=== PATIENT | male | born 1930 | race Caucasian/White ===

== ENCOUNTER → 2017-10-03 | Outpatient (CLI) | payer MEDICARE ==
--- NOTE | 2017-10-04 16:10 | Diagnostic Imaging Report ---
EXAMINATION: PET/CT. INDICATION: Right lung nodule, pancreatic mass. EXAMINATION: After intravenous administration of 12.6 mCi of [id number], a series of overlapping emission and transmission PET images was obtained. In the coronal, transaxial and sagittal planes, the area imaged extended from the skull base through the upper thighs. FINDINGS: There are no previous PET/CT examinations available for comparison. The CT chest exam performed at [facility] in [place], [place], on 08/09/2017 noted a 2 cm pulmonary nodule in the right costophrenic angle. The CT exam also identified a cystic pancreatic lesion. This cystic pancreatic lesion had increased in size since the prior CT abdomen/pelvis exam of 07/18/2014. On this exam, neither the 2 cm mass in the right lung base nor the cystic lesion involving the body of the pancreas is hypermetabolic. There are a few small mediastinal and hilar nodes which are slightly hypermetabolic. These have maximum SUV values in the 2.8-3.1 range. These findings are not conclusive for malignancy. There is no other hypermetabolic activity evident to suggest the presence of neoplasm. The CT images do show that the prostate gland is borderline enlarged measuring 5.0 cm in maximum transverse diameter. There is no hypermetabolic focus associated with the prostate gland to suggest malignancy. The CT images do show that there is an aortic stent graft in place. There are also post-traumatic and degenerative changes involving the right hip joint. There is no acute bony abnormality appreciated. The images through the skull failed to show any sign of an acute intracranial abnormality. There is marked mucosal thickening and fluid within the maxillary sinuses and left sphenoid sinus and right ethmoid sinus. The frontal and right sphenoid and left ethmoid sinuses are generally clear. IMPRESSION: 1. The 2 cm mass in the right lung base and the cystic lesion in the pancreas are not hypermetabolic and consequently unlikely to be related to a malignant process. It may prove worthwhile to have a short-term (six-month) followup CT chest exam for further evaluation, however. 2. There is no other hypermetabolic focus to suggest malignancy. The slightly increased activity associated with the mediastinal and hilar nodes is not specific. 3. The prostate gland is borderline enlarged, but there is no hypermetabolic activity to indicate malignancy. 4. There is severe bilateral maxillary, left sphenoid, and right ethmoid sinusitis. Dictated by: Dictated on workstation # [id number]
== END ==
LOC: RAD 08:10
PROVIDERS: ATTEND Family Medicine
DX: R91.8 Other nonspecific abnormal finding of lung field (principal); K86.9 Disease of pancreas, unspecified; J32.2 Chronic ethmoidal sinusitis; J32.0 Chronic maxillary sinusitis; J32.3 Chronic sphenoidal sinusitis